=== PATIENT | male | born 1975 | race Two or more races ===

== ENCOUNTER 2021-05-21 10:23 | Outpatient (REF) | payer BC, SELFPAY | END 2021-05-21 10:24 | disposition home or self-care (01) | LOC: HO.LAB 10:23 | PROVIDERS: Visit Provider Internal Medicine | DX: Z20.822 Contact with and (suspected) exposure to COVID-19 (principal) | CPT/HCPCS: C9803; U0003; U0005 ==

== ENCOUNTER 2021-05-28 10:07 | Outpatient (REF) | payer BC, SELFPAY ==
[2021-05-28 13:11] LABS: Binax Now Covid-19 Ag Negative (Negative)
[2021-05-28 13:12] LABS: Binax Internal Control QC Valid; Binax Lot number: 9864
== END 2021-05-28 10:08 | disposition home or self-care (01) ==
LOC: HO.LAB 10:07
PROVIDERS: Visit Provider Internal Medicine
DX: Z20.822 Contact with and (suspected) exposure to COVID-19 (principal)
CPT/HCPCS: 36415; C9803